=== PATIENT | female | born 1935 | race Caucasian/White ===

== ENCOUNTER 2017-01-26 10:22 | Emergency (ER) | payer MEDICARE ==
[~2017-01-26] VITALS: Ht 167.6 cm; Wt 104.3 kg
[~2017-01-26 10:22] MED LIST: AMLODIPINE BESYL5 MG PO; CALCIUM 600 +1 EACH PO; CAPOTEN50 MG PO; CAPTOPRIL25 MG PO; COLACE100 MG PO; ELIQUIS5 M1 PO; FUROSEMIDE20 M1 PO; HYDROCHLOROTHIA25 M1 PO; HYDROXYZINE PAM25 M1 PO; LEVOTHYROXIN0.075 M1 PO; LOVASTATIN20 MG PO; LOW DOSE ASPIRI81 MG PO; METOPROLOL TART50 M1 PO; NORVASC2.5 MG PO; OMEPRAZOLE20 M2 PO; Percocet 325 MG1 TAB PO; STOOL SOFTNER PO; TRAMADOL HCL50 MG PO; Zofran4 MG PO
[2017-01-26 10:41] VITALS: BP 149/57
[2017-01-26] MEDS ORDERED: METOLAZONE2.5 MG PO (10:45)
[2017-01-26 12:48] LABS: BILIRUBIN NEGATIVE (NEGATIVE); BLOOD TRACE-INTACT (NEGATIVE); CLARITY CLEAR (CLEAR); COLOR YELLOW (YELLOW); GLUCOSE NEGATIVE (NEGATIVE); KETONE NEGATIVE (NEGATIVE); LEUKO ESTERASE NEGATIVE (NEGATIVE); NITRITE NEGATIVE (NEGATIVE); PROTEIN NEGATIVE (NEGATIVE); UROBILINOGEN 0.2 E.U./dl (0.2-1.0)
[2017-01-26 12:53] LABS: BASO # 0.1 10*3/uL (0.0-0.1); BASO % 0.9 % (0.0-1.0); EOS # 0.3 10*3/uL (0.0-0.4); EOS % 2.1 % (1.0-4.0); HEMATOCRIT 37.9 % (37.0-47.0); HEMOGLOBIN 12.4 g/dl (12.0-16.0); IG # 0.1 10*3/uL (0.0-0.1); LYMPH # 2.1 10*3/uL (1.3-4.4); LYMPH % 16.4 % (27.0-41.0); MEAN CELL VOLUME 93.8 fl (81.0-99.0); MEAN CORPUSCULAR HGB 30.7 pg (27.0-31.0); MEAN CORPUSCULAR HGB CONC 32.7 g/dl (33.0-37.0); MEAN PLATELET VOLUME 9.6 fl (9.6-12.3); MONO # 1.4 10*3/uL (0.1-1.0); MONO % 10.8 % (3.0-9.0); NEUT % 69.2 % (47.0-73.0); PLATELET COUNT AUTOMATED 332 10*3/uL (130-400); RED BLOOD COUNT 4.04 10*6/uL (4.10-5.10); RED CELL DISTRI WIDTH 12.1 % (0-14.5)
[2017-01-26 12:57] LABS: BACTERIA TRACE; HYALINE CAST 0-2
[2017-01-26 12:58] LABS: EPITHELIAL CELLS 0-2; URINE REFLEX COMMENT NO (NO); WBC 0-2 wbc/hpf (0-5)
[2017-01-26 13:07] LABS: POTASSIUM 3.4 mmol/L (3.5-5.1)
== END 2017-01-26 14:17 | disposition home or self-care (01) ==
LOC: ED 10:22
PROVIDERS: Emergency Medicine
DX: R31.9 Hematuria, unspecified (principal); F41.9 Anxiety disorder, unspecified; I48.91 Unspecified atrial fibrillation; I13.0 Hypertensive heart and chronic kidney disease with heart failure and stage 1 through stage 4 chronic kidney disease, or unspecified chronic kidney disease; N18.3 Chronic kidney disease, stage 3 (moderate); I50.30 Unspecified diastolic (congestive) heart failure; F32.9 Major depressive disorder, single episode, unspecified; K21.9 Gastro-esophageal reflux disease without esophagitis; E78.5 Hyperlipidemia, unspecified; M19.90 Unspecified osteoarthritis, unspecified site; Z96.651 Presence of right artificial knee joint; Z90.49 Acquired absence of other specified parts of digestive tract; Z98.890 Other specified postprocedural states; Z79.82 Long term (current) use of aspirin; Z79.899 Other long term (current) drug therapy; Z88.6 Allergy status to analgesic agent; Z88.5 Allergy status to narcotic agent; Z88.8 Allergy status to other drugs, medicaments and biological substances

== ENCOUNTER → 2017-02-07 | Outpatient (CLI) | payer MEDICARE ==
[~2017-02-07] MED LIST changes: +COZAAR100 MG PO; +FERROUS SULFAT325 MG PO; +LASIX40 MG PO; +METOLAZONE2.5 MG PO; +ONE-A-DAY ESSE1 EACH PO; +ZANTAC 300300 MG PO
--- NOTE | ~2017-02-07 | ST ---
[place], [place] EXERCISE STRESS TEST REPORT NAME: TOMI GOMEZ [facility] #: [id number] UNIT #: [id number] ROOM: DOCTOR: BRANDEN TRUJILLO MD BIRTHDATE: [birth year] DOS: 02/07/2017 LEXISCAN STRESS EKG REFERRING PHYSICIAN: Dr. Irizarry. INDICATION: Atrial fibrillation, shortness of breath. The patient underwent standard protocol Lexiscan stress EKG. Baseline EKG shows atrial fibrillation, nonspecific ST-T wave changes. Baseline heart rate 70 beats per minute with a blood pressure 148/50. The patient's peak heart rate was 88 with a blood pressure of 138/48. The patient denied any chest pain, no arrhythmias, no ischemic changes. SUMMARY OF FINDINGS: Unremarkable Lexiscan stress EKG. Please see separate report for perfusion scan results. BRANDEN TRUJILLO MD CM:STRESS:EXERCISE STRESS TEST REPORT [id number] BRANDEN TRUJILLO MD
== END | disposition home or self-care (01) ==
LOC: CARD 00:23
DX: I48.91 Unspecified atrial fibrillation (principal); R53.83 Other fatigue; R94.31 Abnormal electrocardiogram [ECG] [EKG]; R06.02 Shortness of breath

== ENCOUNTER 2018-03-30 03:39 | Emergency (ER) | payer MEDICARE ==
[~2018-03-30] VITALS: Wt 105.7 kg
[2018-03-30 04:52] VITALS: BP 152/70
== END 2018-03-30 04:51 ==
LOC: ED 03:39
DX: S00.03XA Contusion of scalp, initial encounter (principal); E03.9 Hypothyroidism, unspecified; I48.91 Unspecified atrial fibrillation; I13.0 Hypertensive heart and chronic kidney disease with heart failure and stage 1 through stage 4 chronic kidney disease, or unspecified chronic kidney disease; N18.3 Chronic kidney disease, stage 3 (moderate); I50.33 Acute on chronic diastolic (congestive) heart failure; K21.9 Gastro-esophageal reflux disease without esophagitis; E78.5 Hyperlipidemia, unspecified; Z90.49 Acquired absence of other specified parts of digestive tract; Z88.8 Allergy status to other drugs, medicaments and biological substances; Z79.899 Other long term (current) drug therapy; Z79.82 Long term (current) use of aspirin; W06.XXXA Fall from bed, initial encounter; Y93.89 Activity, other specified; Y92.009 Unspecified place in unspecified non-institutional (private) residence as the place of occurrence of the external cause; Y99.8 Other external cause status